=== PATIENT | female | born 1990 | race Caucasian/White ===

== ENCOUNTER 2025-09-26 08:31 | Emergency (ER) | payer MEDICARE, OTHER ==
[~2025-09-26] VITALS: Ht 157.5 cm; Wt 56.7 kg
[2025-09-26 11:29] LABS: Source, Urine Straight Cath
[2025-09-26 11:46] LABS: Color, Urine Amber (P-Yellow); Glucose Qualitative, Urine Neg (Neg); Ketones, Urine Neg (Neg); Leukocyte Esterase, Urine Neg (Neg); Protein, Urine 2+ (Neg); Specific Gravity, Urine 1.025 (1.003-1.022); Urobilinogen, Urine 2+ (Normal)
[2025-09-26 13:03] LABS: Bilirubin, Urine 2+ (Neg)
[2025-09-26 13:05] LABS: Red Blood Cells, Urine 0-2 /hpf (0-2); White Blood Cells, Urine 0-2 /hpf (0-5)
[2025-09-26] MEDS ORDERED: NITR100CA PO (13:16)
== END 2025-09-26 13:25 | disposition home or self-care (01) ==
LOC: ER 08:31
PROVIDERS: Student in an Organized Health Care Education/Training Program
DX: N39.0 Urinary tract infection, site not specified (principal)
CPT/HCPCS: 81001; 81025; 87077; 87086; 87186; 99283